=== PATIENT | male | born 1970 | race American Indian/Alaskan Native ===

== ENCOUNTER 2018-04-18 04:54 | Emergency (ER) | payer SELFPAY ==
[2018-04-18 05:09] VITALS: RESP 20
[2018-04-18] MEDS ORDERED: Albuterol-Ipratrop 3 mg / 0.5 (3 ml) UD ONE ×2 (05:20→06:16)
--- NOTE | 2018-04-18 05:23 | C.PDOC ---
History Of Present Illness Patient has been coughing and started to wheeze since last night. Speaking in complete sentences. No f/c/n/v. Tolerating po. Time Seen by Provider: 04/18/18 05:22 Chief Complaint (Nursing): Shortness Of Breath History Per: Patient History/Exam Limitations: no limitations Onset/Duration Of Symptoms: Days Current Symptoms Are (Timing): Still Present Initiating Event: Upper Respiratory Illness Exacerbating Factor(s): Coughing Current Respiratory Medications: See Home Med List Severity: Moderate Pain Scale Rating Of: 4 Associated Symptoms: denies: Fever, Chills, Productive Cough Recent travel outside of the [place]: No Additional History Per: Family Past Medical History Reviewed: Historical Data, Nursing Documentation, Vital Signs Vital Signs: Last Vital Signs Temp 98 F 04/18/18 05:00 Pulse 78 04/18/18 05:00 Resp 20 04/18/18 05:04 BP 149/88 04/18/18 05:00 Pulse Ox 95 04/18/18 05:00 Family History: States: No Known Family Hx - Social History Hx Alcohol Use: Yes Hx Substance Use: No Review Of Systems ENT: Negative for: Nose Discharge Cardiovascular: Positive for: Chest Pain (only with cough) Respiratory: Positive for: Cough, Wheezing Gastrointestinal: Negative for: Abdominal Pain Musculoskeletal: Negative for: Back Pain Skin: Negative for: Rash Neurological: Negative for: Weakness Psych: Negative for: Anxiety Physical Exam - Physical Exam Appears: Non-toxic, No Acute Distress Skin: Warm, Dry Nose: Normal Oral Mucosa: Moist Throat: No Erythema Neck: Supple Chest: Symmetrical Cardiovascular: Rhythm Regular Respiratory: No Rales, No Rhonchi, Wheezing Gastrointestinal/Abdominal: Soft, No Tenderness Back: Normal Inspection Extremity: Normal ROM Extremity: Bilateral: Atraumatic Neurological/Psych: Oriented x3 Gait: Steady ED Course And Treatment O2 Sat by Pulse Oximetry: 95 Pulse Ox Interpretation: Normal Reevaluation Time: 06:29 Reassessment Condition: Improved Disposition Counseled Patient/Family Regarding: Studies Performed, Diagnosis, Need For Followup, Rx Given - Disposition Referrals: [facility] [Outside] [facility] [Outside] Disposition: HOME/ ROUTINE Disposition Time: 05:23 Condition: FAIR Additional Instructions: Please return if symptoms recur Prescriptions: Albuterol HFA [Ventolin HFA 90 mcg/actuation (8 g)] 2 puff IH [id number] #1 puff Prednisone [Deltasone] 20 mg PO DAILY #5 tablet Instructions: Asthma, Adult (DC) Forms: [facility] (Yakut) - Clinical Impression Clinical Impression: Reactive airway disease
[2018-04-18] MEDS: Albuterol-Ipratrop 3 mg / 0.5 (3 ml) UD IH SCH (06:16)
[2018-04-18 06:21] VITALS: BP 150/88; PULSE 69; TEMP 98.1
[2018-04-18 06:30] VITALS: O2SAT 95
== END 2018-04-18 06:57 | disposition home or self-care (01) ==
LOC: C.ER 04:54
DX: J45.909 Unspecified asthma, uncomplicated (principal)